=== PATIENT | male | born 1960 | race Caucasian/White ===

== ENCOUNTER → 2024-04-22 06:50 | Outpatient (CLI) | payer MEDICARE, OTHER, SELFPAY ==
[2024-04-22 08:55] LABS: Prostate Specific Antigen 3.28 ng/mL (0.10-4.00)
== END ==
PROVIDERS: PCP Nurse Practitioner; Referring Provider Urology; Visit Provider Urology
DX: R39.14 Feeling of incomplete bladder emptying (principal); N32.0 Bladder-neck obstruction; R39.9 Unspecified symptoms and signs involving the genitourinary system
CPT/HCPCS: 36415; 84153